=== PATIENT | male | born 1950 | race Caucasian/White ===

== ENCOUNTER → 2018-04-17 07:28 | Outpatient (CLI) | payer MEDICARE, OTHER, SELFPAY ==
--- NOTE | 2018-04-17 | DI.US.S_ITS ---
PROCEDURE: US CAROTID DOPPLER BI INDICATIONS: CAROTID ARTERY DISEASE TECHNIQUE: Color and pulse Doppler interrogation was performed of both carotid systems, with image documentation and velocity measurements. COMPARISON: [facility], [place], CAROTID ARTERY DOPPLER BILAT, 02/27/2014, 8:57. FINDINGS: Stenosis calculations are based on SRU (Society of Radiologists in Ultrasound) criteria. Right side: Brachial blood pressure: 134/79 mm Hg. Common carotid artery peak systolic velocity: 102 cm/sec. Internal carotid artery peak systolic velocity: 87 cm/sec. Internal carotid artery end diastolic velocity: 26 cm/sec. External carotid artery peak systolic velocity: 104 cm/sec. ICA/CCA peak systolic ratio: 0.9. Pabon scale imaging description: Mild scattered plaque. Percent internal carotid artery stenosis: Less than 50%. Vertebral artery: Flow direction is antegrade. Left side: Brachial blood pressure: 131/73 mm Hg. Common carotid artery peak systolic velocity: 118 cm/sec. Internal carotid artery peak systolic velocity: 81 cm/sec. Internal carotid artery end diastolic velocity: 24 cm/sec. External carotid artery peak systolic velocity: 138 cm/sec. ICA/CCA peak systolic ratio: 0.7. Pabon scale imaging description: Mild scattered plaque. Percent internal carotid artery stenosis: Less than 50%. Vertebral artery: Flow direction is antegrade. IMPRESSION: Less than 50% bilateral internal carotid artery stenosis which is stable compared to prior exam. Dictated by: Beto AVALOS Interpreted: Ildefonso Main MD on 04/17/2018 at 10:36 Approved by: Ildefonso Main M.D. on 04/17/2018 at 12:58
== END ==
PROVIDERS: Family Provider Family Medicine; PCP Family Medicine; Visit Provider Family Medicine
DX: I65.23 Occlusion and stenosis of bilateral carotid arteries (principal)
CPT/HCPCS: 93880

== ENCOUNTER → 2020-08-25 08:03 | Outpatient (CLI) | payer MEDICARE, OTHER, SELFPAY ==
[2020-08-25 09:03] LABS: Hemoglobin A1C% w Est Avg Glu 6.6 % (4.0-6.0)
[2020-08-25 09:16] LABS: Alanine Aminotransferase 25 IU/L (<50); Albumin 4.4 g/dL (3.5-5.0); Albumin Globulin Ratio 1.8 (1.0-2.8); Alkaline Phosphatase 61 U/L (38-126); Aspartate Aminotransferase 27 IU/L (17-59); BUN Creatinine Ratio 22.9 (6-22); Bilirubin Total 0.4 mg/dL (0.2-1.3); Blood Urea Nitrogen 16 mg/dL (9-20); Calcium 9.7 mg/dL (8.4-10.2); Carbon Dioxide 29 mmol/L (22-32); Chloride 100 mmol/L (98-107); Cholesterol 172 mg/dL (140-199); Estimated Glomerular Filt Rate > 60.0 mL/min (>60); Globulin 2.5 g/dL (1.7-4.1); Glucose 127 mg/dL (80-110); HDL Cholesterol 38 mg/dL (40-60); HEMOLYSIS < 15 (0-50); LDL Cholesterol Calculated 112 mg/dL (<100); Potassium 4.4 mmol/L (3.4-5.1); Sodium 137 mmol/L (137-145); Total Protein 6.9 g/dL (6.3-8.2); Triglycerides 108 mg/dL (35-150)
[2020-08-25 09:24] LABS: Microalbumin Urine Random 0.8 mg/dL (0-1.6)
== END ==
PROVIDERS: PCP Family Medicine; Referring Provider Family Medicine; Visit Provider Family Medicine
DX: E11.319 Type 2 diabetes mellitus with unspecified diabetic retinopathy without macular edema (principal)
CPT/HCPCS: 36415; 80053; 80061; 82043; 82570; 83036

== ENCOUNTER → 2023-09-08 07:58 | Outpatient (CLI) | payer MEDICARE, SELFPAY ==
[2023-09-08 08:53] LABS: Cholesterol 157 mg/dL (140-199); HDL Cholesterol 34 mg/dL (40-60); LDL Cholesterol Calculated 104 mg/dL (<100); Triglycerides 96 mg/dL (35-150)
[2023-09-08 08:54] LABS: Hemoglobin A1C% w Est Avg Glu 6.2 % (4.0-6.0)
[2023-09-08 08:59] LABS: Alanine Aminotransferase 24 IU/L (<50); Albumin 4.4 g/dL (3.5-5.0); Albumin Globulin Ratio 1.8 (1.0-2.8); Alkaline Phosphatase 73 U/L (38-126); Aspartate Aminotransferase 27 IU/L (17-59); BUN Creatinine Ratio 28.8 (6-22); Bilirubin Total 0.6 mg/dL (0.2-1.3); Blood Urea Nitrogen 19 mg/dL (9-20); Calcium 9.2 mg/dL (8.4-10.2); Carbon Dioxide 29 mmol/L (22-32); Chloride 101 mmol/L (98-107); Estimated Glomerular Filt Rate > 60 mL/min (>60); Globulin 2.4 g/dL (1.7-4.1); Glucose 121 mg/dL (80-110); HEMOLYSIS < 15 (0-50); Potassium 4.1 mmol/L (3.4-5.1); Sodium 135 mmol/L (137-145); Total Protein 6.8 g/dL (6.3-8.2)
[2023-09-08 09:25] LABS: Hematocrit 41.6 % (41-53); Hemoglobin 14.3 g/dL (13.5-17.5); Mean Corpuscular HGB Conc 34.3 % (30-36); Mean Corpuscular Volume 90.3 fL (80-100); Platelet Count 211 X10^3/uL (150-400); Red Cell Distribution Width 12.7 % (11.6-14.8)
[2023-09-08 09:49] LABS: Microalbumi Creatinin Ratio Ur 11.7 ug/mg CR (<30); Microalbumin Urine Random 0.8 mg/dL (0-1.6)
== END ==
PROVIDERS: PCP Family Medicine; Referring Provider Internal Medicine Endocrinology, Diabetes & Metabolism; Visit Provider Internal Medicine Endocrinology, Diabetes & Metabolism
DX: E10.9 Type 1 diabetes mellitus without complications (principal); I10 Essential (primary) hypertension; E78.5 Hyperlipidemia, unspecified
CPT/HCPCS: 36415; 80053; 80061; 82043; 82570; 83036; 85027

== ENCOUNTER → 2024-04-03 08:20 | Outpatient (CLI) | payer MEDICARE, SELFPAY ==
[2024-04-03 09:39] LABS: Creatinine Urine Random 130.89 mg/dL
[2024-04-03 09:41] LABS: Alanine Aminotransferase 25 IU/L (<50); Albumin 4.3 g/dL (3.5-5.0); Albumin Globulin Ratio 1.8 (1.0-2.8); Alkaline Phosphatase 80 U/L (38-126); Aspartate Aminotransferase 26 IU/L (17-59); BUN Creatinine Ratio 26.1 (6-22); Bilirubin Total 0.7 mg/dL (0.2-1.3); Blood Urea Nitrogen 18 mg/dL (9-20); Calcium 9.5 mg/dL (8.4-10.2); Carbon Dioxide 26 mmol/L (22-32); Chloride 102 mmol/L (98-107); Cholesterol 165 mg/dL (140-199); Estimated Glomerular Filt Rate > 60 mL/min (>60); Globulin 2.4 g/dL (1.7-4.1); Glucose 156 mg/dL (80-110); HDL Cholesterol 36 mg/dL (40-60); HEMOLYSIS < 15 (0-50); LDL Cholesterol Calculated 110 mg/dL (<100); Potassium 4.2 mmol/L (3.4-5.1); Sodium 134 mmol/L (137-145); Total Protein 6.7 g/dL (6.3-8.2); Triglycerides 95 mg/dL (35-150)
[2024-04-03 09:46] LABS: Microalbumin Urine Random 3.5 mg/dL (0-1.6)
== END ==
PROVIDERS: PCP Family Medicine; Referring Provider Family Medicine; Visit Provider Family Medicine
DX: E10.9 Type 1 diabetes mellitus without complications (principal); I10 Essential (primary) hypertension; E78.5 Hyperlipidemia, unspecified
CPT/HCPCS: 36415; 80053; 80061; 82043; 82570; 83036

== ENCOUNTER 2024-08-03 17:34 | Emergency (ER) | payer MEDICARE, SELFPAY ==
[2024-08-03 17:40] VITALS: BP 142/65; PULSE 79; RESP 18; TEMP 36.4; O2SAT 96; BMI 31.9
--- NOTE | 2024-08-03 17:59 | ED_ITS ---
HPI - Abdominal Pain <Catie Clark PA-C - Last Filed: 08/03/24 19:22> General Chief Complaint: Abdominal Pain Stated Complaint: unable to poop/poss dehydration Time Seen by Provider: 08/03/24 17:48 Source: patient Mode of arrival: Ambulatory History of Present Illness HPI narrative: This is a 73-year-old male with a history of type 1 diabetes, hypertension and SAKINA presenting to the ER with concern for inability to poop for the last 3 hours with a sensation that there is stool in his rectum. Patient states he can not sit down because it was uncomfortable to do so. He was trying to have a bowel movement for the last 3 hours and came to the ER as a last results. He states he has been 2 days since he has had a bowel movement, typically has a bowel movement daily. He says normally his stool is somewhat firm and he has been drinking water. He notes that he had the flu about 2 weeks ago and is still recovering from this, he states his sugars and A1c has been doing well. He denies any abdominal pain slight discomfort in the rectal area associated with attempting to strain/have bowel movement otherwise he has no pain or concerns. He is interested in a fecal disimpaction today. Related Data Home Medications Medication Instructions Recorded Confirmed aspirin 81 mg tablet,delayed 81 mg PO DAILY 09/05/18 04/09/24 release (Adult Low Dose Aspirin) sildenafil 100 mg tablet (Viagra) 100 mg PO DAILY PRN 09/05/18 04/09/24 Respironics Dreamstation CPAP #1 ea 11/23/21 04/09/24 pen needle, diabetic 31 gauge x #1,200 ea 04/09/24 04/09/2416 (BD Ultra-Fine Short Pen Needle) Previous Rx's Medication Instructions Recorded buspirone 5 mg tablet 5 mg PO TID PRN anxiety #60 tabs 07/20/23 felodipine 10 mg tablet,extended 10 mg PO DAILY #90 tabs 09/28/23 release 24 hr hydrochlorothiazide 25 mg tablet 25 mg PO DAILY #90 tabs 09/28/23 insulin aspart U-100 100 unit/mL 35 unit (0.35 mL) SUBCUT QID #126 09/28/23 (3 mL) subcutaneous pen (Novolog mL FlexPen U-100 Insulin aspart) insulin glargine 100 unit/mL (3 50 unit (0.5 mL) SUBCUT DAILY #45 09/28/23 mL) subcutaneous pen (Lantus mL Solostar U-100 Insulin) lisinopril 40 mg tablet 60 mg (1.5 x 40 mg) PO DAILY #135 09/28/23 tabs atorvastatin 80 mg tablet 80 mg PO DAILY #90 tabs 04/09/24 bisacodyl 10 mg rectal suppository 10 mg WV DAILY PRN 08/03/24 constipation/fecal impaction 12 days #12 ea Allergies Allergy/AdvReac Type Severity Reaction Status Date / Time No Known Drug Allergies Allergy Verified 04/09/24 08:06 Review of Systems <Catie Clark PA-C - Last Filed: 08/03/24 19:22> Review of Systems Narrative: See HPI Patient History <Catie Clark PA-C - Last Filed: 08/03/24 19:22> Medical History Decreased hearing Measles Chicken pox Type 1 diabetes mellitus Obstructive sleep apnea of adult (~2012) Hyperlipidemia Hypertension (~1978) Surgical History History of toe surgery (~2006) Family History Brother Cancer Grandmother Diabetes mellitus Social History marital status: number of children: 3 household members: spouse lives independently: Yes caregiver/support person: No housing: house education level: master's degree other: has 2 classic cars; currently restoring one of them Smoking Status: Never smoker substance use type: does not use caffeine: Yes Type(s) of exercise: regular exercise additional social history: Alcohol intake is rare and social Smoking Status: Never smoker Exam <Catie Clark PA-C - Last Filed: 08/03/24 19:22> Narrative Exam Narrative: GENERAL: [73] year old patient appears stated age. Well-developed patient, in mild distress. HEAD: Atraumatic. Normocephalic. EYES: Pupils equal round and reactive. Extraocular motions intact. No scleral icterus. No injection or drainage. ENT: Nose without bleeding, purulent drainage. Airway patent. NECK: Trachea midline. Non tender CARDIOVASCULAR: Regular rate and rhythm without murmurs, gallops, or rubs. RESPIRATORY: Clear to auscultation. Breath sounds equal bilaterally. No wheezes, rales, or rhonchi. GASTROINTESTINAL: Abdomen soft, non-tender, nondistended, all quadrants. RECTAL: Patient placed in a gown and draped with a blanket, lab rep SARAH Orosco present. Upon visual examination patient has a visible ball of stool in the rectum pressing against the anal sphincter which is slightly open. EXTREMITIES: No edema or joint tenderness. BACK: Nontender without deformity or crepitance. No flank tenderness. NEURO: AOx3. SKIN: No rash or erythema of visible areas Initial Vital Signs Initial Vital Signs: Vital Signs Temperature 97.5 F L 08/03/24 17:40 Pulse Rate 79 08/03/24 17:40 Respiratory Rate 18 08/03/24 17:40 Blood Pressure 142/65 H 08/03/24 17:40 Pulse Oximetry 96 08/03/24 17:40 Oxygen Delivery Method Room Air 08/03/24 17:40 <Carla Hoover DO - Last Filed: 08/04/24 06:31> Initial Vital Signs Initial Vital Signs: Vital Signs Temperature 97.5 F L 08/03/24 17:40 Pulse Rate 79 08/03/24 17:40 Respiratory Rate 18 08/03/24 17:40 Blood Pressure 142/65 H 08/03/24 17:40 Pulse Oximetry 96 08/03/24 17:40 Oxygen Delivery Method Room Air 08/03/24 17:40 Procedures <Catie Clark PA-C - Last Filed: 08/03/24 19:22> Rectal Disimpaction Time of procedure: 18:15 Time out performed rectal disimpaction: Yes Indication: fecal impaction Procedural Sedation: No Sedation/Analgesia: none Technique: manual disimpaction with gloved finger Result: significant stool output Patient Tolerated Procedure: Well Complications: none Additional Comments: Significant amount of firm brown large diameter balls of stool obtained volume consistent with a typical sized bowel movement, no blood or mucus noted. Small amount of firm stool remaining in the rectum unable to remove. Course <ADRIENNE Ulrich Last Filed: 08/03/24 19:22> Vital Signs Vital signs: Vital Signs - 8 hr 08/03/24 17:40 08/03/24 18:36 Temperature 97.5 F L Pulse Rate 79 80 Respiratory Rate 18 16 Blood Pressure 142/65 H 140/60 Pulse Oximetry 96 96 Oxygen Delivery Method Room Air Room Air <Carla HooverDO - Last Filed: 08/04/24 06:31> Vital Signs Vital signs: Vital Signs - 8 hr 08/03/24 17:40 08/03/24 18:36 Temperature 97.5 F L Pulse Rate 79 80 Respiratory Rate 18 16 Blood Pressure 142/65 H 140/60 Pulse Oximetry 96 96 Oxygen Delivery Method Room Air Room Air MDM - Abdominal Pain <Catie Clark PA-C - Last Filed: 08/03/24 19:22> Differential Diagnosis Differential diagnosis: Likely other (Constipation/fecal load in rectum/fecal disimpaction) Medical Records Attestation: I reviewed the patient's medical records. [facility] [place] Narrative Medical decision making narrative: This is a 73-year-old type 2 diabetic presenting to the ER with concern for 3 hours of difficulty passing stool with a bolus stool in his rectum requesting fecal disimpaction. Last BM 2 days ago, normally once daily. Patient had no abdominal pain or tenderness no other concerning signs or symptoms. Imaging and labs were not obtained. Fecal disimpaction was performed successfully with approximately 90% of the palpable fecal load removed successfully with brown stool present no blood or mucus. Patient felt significant relief after this. Prescription/recommendation to take bisacodyl suppositories for the next few days. Increase fluid and fiber intake. Follow up very closely with his PCP to see how things are going. He is type 1 diabetic and did talk to him about the possibility that his symptoms could be related to his diabetes. He denied other complaints or concerns and return precautions were provided, follow-up plan discussed, all questions answered. Discharge Plan Departure Patient Disposition: Home Clinical Impression: Fecal impaction in rectum Activity Restrictions/Additional Instructions: *You have been diagnosed with [fecal impaction of rectum ] *What to do: *Please continue to take your regular medications as directed. [ 1] New medication prescriptions sent to your pharmacy: [Bisacodyl suppositories] [ ] New medication written as a paper prescription [ ] No new medications given *Please follow up with your primary care provider in 2-3 days, call for an appointment. Let them know you were seen in the Emergency Department and that we ask that you be seen in follow up. We will electronically transmit a record of today's note if your PCP is in our system. You came into the ER today with concern for difficulty having a bowel movement and a sensation that stool was stuck in your rectum. We were able to get a large amount of stool out with manual disimpaction today in the ER. There still some firm somewhat hardened stool remaining in her rectum but overall this is much improved. I prescribed rectal suppositories that should help to loosen up the stool and move things forward. Please take this as early as you can. You can use these once daily if needed. I would like you to follow up with your primary care provider soon as well and see how things are going. Also increase fruits vegetables fluids water and it is fine to take Metamucil or fiber supplements as well. This may or may not be related to your diabetes as it can cause issues with gastric motility. If you develop abdominal pain fevers chills or other concerning symptoms or have recurrent problem with stool not passing you can always return to the ED if needed. I hope you feel better soon. *If you do not have a primary care provider please contact the [facility] Resource line at [phone]. They will ask some questions about your medical history and help get you set up with a doctor in the community. *Return to Emergency Department if you should have any new, worsening or concerning symptoms, such as [fever greater than 101 F, shaking chills, worsening pain, persistent vomiting or other bothersome symptoms] Prescriptions: New bisacodyl 10 mg suppository 10 mg WV DAILY PRN (Reason: constipation/fecal impaction) 12 Days Qty: 12 0RF No Action lisinopril 40 mg tablet 60 mg PO DAILY Qty: 135 3RF felodipine 10 mg tablet extended release 24 hr 10 mg PO DAILY Qty: 90 3RF hydrochlorothiazide 25 mg tablet 25 mg PO DAILY Qty: 90 3RF insulin glargine [Lantus Solostar U-100 Insulin] 100 unit/mL (3 mL) insulin pen 50 unit SUBCUT DAILY Qty: 45 3RF Rx Instructions: 3-month supply insulin aspart U-100 [Novolog FlexPen U-100 Insulin] 100 unit/mL (3 mL) insulin pen 35 unit SUBCUT QID Qty: 126 3RF (DME) pen needle, diabetic [BD Ultra-Fine Short Pen Needle] 31 gauge x 5/16 needle See Rx Instructions .ROUTE BID Qty: 1200 Rx Instructions: As directed atorvastatin 80 mg tablet 80 mg PO DAILY Qty: 90 3RF buspirone 5 mg tablet 5 mg PO TID PRN (Reason: anxiety) Qty: 60 0RF aspirin [Adult Low Dose Aspirin] 81 mg tablet,delayed release (DR/EC) 81 mg PO DAILY sildenafil [Viagra] 100 mg tablet 100 mg PO DAILY PRN (DME) Respironics Dreamstation CPAP Qty: 1 Dose Instruction: As directed Patient Comments: Pressure: 6-12 cmH2O DME: NORCO JOEL: 07/06/17 Rx Instructions: As directed Referrals: Perfecto Alvarez MD [Primary Care Provider] - Stand Alone Forms: Patient Portal/API/Survey ED Sign-out <Carla Hoover DO - Last Filed: 08/04/24 06:31> Cosign ED Attending Mildred Attestation: I was immediately available in the department for consultation.
[2024-08-03 18:36] VITALS: BP 140/60; PULSE 80; RESP 16; O2SAT 96
== END 2024-08-03 18:36 | disposition home or self-care (01) ==
PROVIDERS: Emergency Provider Student in an Organized Health Care Education/Training Program; PCP Family Medicine
DX: K56.41 Fecal impaction (principal)
CPT/HCPCS: 99281; 99282

== ENCOUNTER → 2024-09-24 08:05 | Outpatient (CLI) | payer MEDICARE, SELFPAY ==
[2024-09-24 09:48] LABS: Hematocrit 41.7 % (41-53); Hemoglobin 14.2 g/dL (13.5-17.5); Mean Corpuscular Volume 91.2 fL (80-100); Platelet Count 220 X10^3/uL (150-400); Red Blood Cell Count 4.57 X10^6/uL (4.5-5.9); Red Cell Distribution Width 13.5 % (11.6-14.8); White Blood Cell Count 5.4 X10^3/uL (4.5-11.0)
[2024-09-24 10:00] LABS: Hemoglobin A1C% w Est Avg Glu 5.7 % (4.0-6.0)
[2024-09-24 10:04] LABS: Creatinine Urine Random 45.04 mg/dL
[2024-09-24 10:12] LABS: Microalbumin Urine Random 0.7 mg/dL (0-1.6)
[2024-09-24 10:18] LABS: BUN Creatinine Ratio 25.8 (6-22); Blood Urea Nitrogen 17 mg/dL (9-20); Calcium 9.1 mg/dL (8.4-10.2); Carbon Dioxide 28 mmol/L (22-32); Chloride 98 mmol/L (98-107); Cholesterol 139 mg/dL (140-199); Estimated Glomerular Filt Rate > 60 mL/min (>60); Glucose 116 mg/dL (70-99); HDL Cholesterol 33 mg/dL (40-60); HEMOLYSIS < 15 (0-50); LDL Cholesterol Calculated 87 mg/dL (<100); Potassium 4.2 mmol/L (3.4-5.1); Sodium 134 mmol/L (137-145); Triglycerides 95 mg/dL (35-150)
== END ==
PROVIDERS: PCP Family Medicine; Referring Provider Internal Medicine Endocrinology, Diabetes & Metabolism; Visit Provider Internal Medicine Endocrinology, Diabetes & Metabolism
DX: E10.9 Type 1 diabetes mellitus without complications (principal); I10 Essential (primary) hypertension; E78.5 Hyperlipidemia, unspecified
CPT/HCPCS: 36415; 80048; 80061; 82043; 82570; 83036; 85027

== ENCOUNTER → 2025-04-08 08:24 | Outpatient (CLI) | payer MEDICARE, SELFPAY ==
[2025-04-08 09:07] LABS: Hematocrit 41.6 % (41-53); Hemoglobin 14.5 g/dL (13.5-17.5); Mean Corpuscular HGB Conc 34.9 % (30-36); Mean Corpuscular Hemoglobin 31.2 PG (26-34); Mean Corpuscular Volume 89.4 fL (80-100); Platelet Count 228 X10^3/uL (150-400)
[2025-04-08 09:39] LABS: Alanine Aminotransferase 30 IU/L (<50); Albumin 4.6 g/dL (3.5-5.0); Albumin Globulin Ratio 1.8 (1.0-2.8); Alkaline Phosphatase 80 U/L (38-126); Blood Urea Nitrogen 18 mg/dL (9-20); Calcium 9.6 mg/dL (8.4-10.2); Carbon Dioxide 24 mmol/L (22-32); Chloride 101 mmol/L (98-107); Cholesterol 156 mg/dL (140-199); Estimated Glomerular Filt Rate > 60 mL/min (>60); Globulin 2.6 g/dL (1.7-4.1); Glucose 112 mg/dL (70-99); HDL Cholesterol 40 mg/dL (40-60); HEMOLYSIS < 15 (0-50); Hemoglobin A1C% w Est Avg Glu 6.4 % (4.0-6.0); Potassium 4.1 mmol/L (3.4-5.1); Sodium 137 mmol/L (137-145); Total Protein 7.2 g/dL (6.3-8.2); Triglycerides 87 mg/dL (35-150)
[2025-04-09 17:01] LABS: Microalbumi Creatinin Ratio Ur 28.0 ug/mg CR (<30)
== END ==
PROVIDERS: PCP Family Medicine; Referring Provider Family Medicine; Visit Provider Internal Medicine Endocrinology, Diabetes & Metabolism
DX: E10.9 Type 1 diabetes mellitus without complications (principal); E11.3293 Type 2 diabetes mellitus with mild nonproliferative diabetic retinopathy without macular edema, bilateral; I10 Essential (primary) hypertension; E78.5 Hyperlipidemia, unspecified
CPT/HCPCS: 36415; 80053; 80061; 82043; 82570; 83036; 85027